=== PATIENT | female | born 1950 | race Caucasian/White ===

== ENCOUNTER 2021-08-04 14:59 | Outpatient (REF) | payer MEDICARE, SELFPAY ==
--- NOTE | ~2021-08-04 | XR_ITS ---
EXAMINATION: XR HAND, LEFT CLINICAL INFORMATION: Pain COMPARISON: None TECHNIQUE: PA, lateral, and oblique views of the left hand. FINDINGS: Bone alignment is normal. No fracture or dislocation is seen. The bones are osteopenic. There may be a small cyst in the third metacarpal head. Joint spaces are normal. Soft tissues are normal. XR/XR hand LT min 3V IMPRESSION: Osteopenia.
== END 2021-08-04 15:00 | disposition home or self-care (01) ==
LOC: HO.XRAY 14:59
PROVIDERS: Absent Provider Internal Medicine; PCP Internal Medicine; Visit Provider Family Medicine
DX: M79.645 Pain in left finger(s) (principal)
CPT/HCPCS: 73130

== ENCOUNTER 2021-08-29 14:00 | Outpatient (REF) | payer MEDICARE, SELFPAY ==
--- NOTE | ~2021-08-29 | MM_ITS ---
EXAMINATION: MM DIAGNOSTIC DIGITAL BREAST TOMOSYNTHESIS, BILATERAL US DIAGNOSTIC ULTRASOUND BREAST, LEFT CLINICAL INFORMATION: Left breast pain for a year. No palpable mass or discharge. The lifetime risk of breast cancer based on the Tyrer-Cuzick Model is 3%. COMPARISON: Mammography: 09/04/2017, 09/18/2016, outside mammography 03/08/2015 and 03/03/2014 ([facility]) TECHNIQUE: Digital breast tomosynthesis is performed in both the craniocaudal and mediolateral oblique views along with computer-aided detection (CAD). Synthesized 2D images are generated from the tomosynthesis. Ultrasound left breast is targeted to the areas of clinical concern for 4:00 through 9:00 position. Grayscale imaging and color Doppler are performed without and with harmonics. FINDINGS: The breasts are almost entirely fatty (ACR BI-RADS breast composition Category a). There is no interval mass or architectural abnormality. There is no coarsening of the Russ's ligaments or skin thickening or retraction. The axilla are unremarkable. Again, there are scattered bilateral vascular calcifications. Numerous fine uniform punctate round calcifications are again seen mid to posterior outer left breast similar to prior exams dating back to outside exam 2013. Ultrasound left breast demonstrates no cystic or solid mass or architectural abnormality. No focal duct ectasia. No skin thickening or edema tracking in soft tissue planes. Results are discussed with the patient at time of visit, using an hourly sign language interpreter. MM/MM tomosynthesis diagnostic BI IMPRESSION: 1. No significant change from prior mammography. No inflammatory changes. 2. Unremarkable left breast ultrasound. ASSESSMENT: BI-RADS 2: Benign RECOMMENDATION: 1. Patient's chronic left breast pain should be managed based on the clinical impression. 2. Otherwise, routine annual screening mammography. This patient's information was entered into a reminder system with a target due date for their next mammogram.
== END 2021-08-29 14:01 | disposition home or self-care (01) ==
LOC: HO.MAMMO 14:00
PROVIDERS: Visit Provider Family Medicine
DX: N64.4 Mastodynia (principal)
CPT/HCPCS: 76642; 77062; 77066

== ENCOUNTER 2022-02-14 12:56 | Outpatient (REF) | payer MEDICARE, SELFPAY ==
--- NOTE | ~2022-02-14 | MM_ITS ---
EXAMINATION: BONE DENSITOMETRY CLINICAL INDICATION: Menopause. COMPARISON: Previous BD dated 03/18/2019 and baseline BD dated 08/30/2016. TECHNIQUE: Using a V[employer] DXA System (software version: 13.1) manufactured by [employer], dual-energy x-ray absorptiometry was performed of the lumbar spine and left hip. The images are of good technical quality. Summary results are attached. FINDINGS: AP SPINE L1-L4: Current: BMD 0.845 g/cm2, Z-score -1.3, T-score -2.8, osteoporosis, 1.4% decrease from previous, 6.1% decrease from baseline (<5% change is not significant). Prior: BMD 0.857 g/cm2. Baseline: BMD 0.900 g/cm2. LEFT FEMUR, NECK: Current: BMD 0.564 g/cm2, Z-score -1.8, T-score -3.4, osteoporosis. Prior: BMD 0.601 g/cm2. Baseline: BMD 0.627 g/cm2. LEFT FEMUR, TOTAL: Current: BMD 0.615 g/cm2, Z-score -1.8, T-score -3.1, osteoporosis, 2.2% decrease from previous, 4.9% decrease from baseline (<5% change is not significant). Prior: BMD 0.629 g/cm2. Baseline: BMD 0.647 g/cm2. IDENTIFIED RISK FACTORS: Menopause, height loss, hysterectomy. HISTORY OF FRACTURE: None listed. MEDICATIONS: Calcium. MM/XR DEXA axial skeleton IMPRESSION: 1. DIAGNOSIS: Osteoporosis based on the lowest T-score value of -3.4 in the femoral neck applying World Health Organization criteria. 2. 10-YEAR FRACTURE RISK PREDICTION, FRAX: According to the guidelines, FRAX calculation should only be performed on patients in the osteopenia bone density category. Therefore, FRAX was not performed on this patient. 3. Treatment Recommendations: NOF guidelines recommend consideration for treatment in postmenopausal women and men age 50 and older presenting with the following: -A hip or vertebral (clinical or morphometric) fracture. -T-score less than or equal to -2.5 at the femoral neck or spine after appropriate evaluation to exclude secondary causes. -Low bone mass at the hip or spine and a 10-year fracture probability by FRAX of greater than or equal to 3% for hip fracture or greater than or equal to 20% for major osteoporotic fracture based on the [place] adapted WHO algorithm. 4. Other Recommendations: All treatment decisions require clinical judgment and consideration of individual patient factors, including patient preferences, comorbidities, previous drug use, risk factors not captured in the FRAX model (e.g. frailty, falls, vitamin D deficiency, increased bone turnover, interval significant decline in bone density) and possible under or overestimation of fracture risk by FRAX. Additional medical evaluation for secondary cause of low bone mineral density may be appropriate. FUTURE SCAN RECOMMENDATION: People with diagnosed cases of osteoporosis or at high risk for fracture should have regular bone mineral density tests. For patients eligible for Medicare, routine testing is allowed once every 2 years. The testing frequency can be increased to one year for patients who have rapidly progressing disease, those who are receiving or discontinuing medical therapy to restore bone mass, or have additional risk factors.
== END 2022-02-14 12:57 | disposition home or self-care (01) ==
LOC: HO.MAMMO 12:56
PROVIDERS: PCP Internal Medicine; Visit Provider Internal Medicine
DX: Z13.820 Encounter for screening for osteoporosis (principal); Z78.0 Asymptomatic menopausal state; M81.0 Age-related osteoporosis without current pathological fracture
CPT/HCPCS: 77080

== ENCOUNTER → 2023-01-11 09:56 | Outpatient (BNVA) | payer MEDICARE, SELFPAY | PROVIDERS: PCP Internal Medicine; Visit Provider Internal Medicine Endocrinology, Diabetes & Metabolism | DX: M81.0 Age-related osteoporosis without current pathological fracture (principal); Z78.0 Asymptomatic menopausal state; Z90.710 Acquired absence of both cervix and uterus; Z79.83 Long term (current) use of bisphosphonates | CPT/HCPCS: 99212 ==

== ENCOUNTER 2023-07-05 11:46 | Outpatient (REF) | payer OTHER, SELFPAY | END 2023-07-05 11:47 | disposition home or self-care (01) | LOC: HO.LAB 11:46 | PROVIDERS: PCP Internal Medicine; Visit Provider Internal Medicine Endocrinology, Diabetes & Metabolism | DX: M81.0 Age-related osteoporosis without current pathological fracture (principal) | CPT/HCPCS: 82523 ==

== ENCOUNTER 2023-07-09 09:47 | Outpatient (AMB) | payer MEDICARE, SELFPAY ==
--- NOTE | 2023-07-09 09:48 | MHC.OFFVIS ---
Intake Vital Signs 07/09/23 09:56 Height 5 ft 1.2 in Weight 162 lb 14.746 oz BMI 30.6 BP 126/64 Blood Pressure Location Lt brachial Position Sitting Pulse 62 Pulse Source Pulse Oximeter Intake Visit Reasons: Osteoporosis, voicemail Intake Note: Patient present for Osteoporosis follow up visit. Field Human Resources Manager Required: Yes Field Human Resources Manager Language: Tamazight Information Interpreted: non-clinical & clinical Accompanied by: Friend Allergies aspirin Allergy (Unknown, Verified 07/09/23 10:03) Unknown Medication List - Last Reconciled 07/09/23 by Wilfrid Solano MD amlodipine 10 mg PO DAILY atorvastatin 40 mg PO DAILY loratadine 10 mg PO DAILY PRN metoprolol tartrate 25 mg PO BID omeprazole 40 mg PO DAILY risedronate (Actonel) 35 mg PO QWEEK HPI HPI Comments History of Present Illness Details This 73-year-old female previously seen by Dr. Darby for osteoporosis. Last seen 05/07/2019. Secondary workup was negative. She is not currently on alendronate 70 mg Q weekly although was prescribed it she took 1 dose of alendronate and describes atypical side effects of sweating and dizziness. DEXA listed below appears to be stable. DXA dated : 02/14/22 EXAMINATION: BONE DENSITOMETRY CLINICAL INDICATION: Menopause. COMPARISON: Previous BD dated 03/18/2019 and baseline BD dated 08/30/2016. TECHNIQUE: Using a [employer] DXA System (software version: 13.1) manufactured by [employer], dual-energy x-ray absorptiometry was performed of the lumbar spine and left hip. The images are of good technical quality. Summary results are attached. FINDINGS: AP SPINE L1-L4: Current: BMD 0.845 g/cm2, Z-score -1.3, T-score -2.8, osteoporosis, 1.4% decrease from previous, 6.1% decrease from baseline (<5% change is not significant). Prior: BMD 0.857 g/cm2. Baseline: BMD 0.900 g/cm2. LEFT FEMUR, NECK: Current: BMD 0.564 g/cm2, Z-score -1.8, T-score -3.4, osteoporosis. Prior: BMD 0.601 g/cm2. Baseline: BMD 0.627 g/cm2. LEFT FEMUR, TOTAL: Current: BMD 0.615 g/cm2, Z-score -1.8, T-score -3.1, osteoporosis, 2.2% decrease from previous, 4.9% decrease from baseline (<5% change is not significant). Prior: BMD 0.629 g/cm2. Baseline: BMD 0.647 g/cm2. IDENTIFIED RISK FACTORS: Menopause, height loss, hysterectomy. HISTORY OF FRACTURE: None listed. MEDICATIONS: Calcium. MM/XR DEXA axial skeleton IMPRESSION: 1. DIAGNOSIS: Osteoporosis based on the lowest T-score value of -3.4 in the femoral neck applying World Health Organization criteria.? Labs: Secondary workup was negative. took risendronate but stopped it couple of mos ago because of abd pain and diarrhea [facility] Medical History (Updated 01/11/23 @ 10:05 by Wilfrid Solano MD) Osteoporosis Social History Alcohol intake: current Alcohol intake frequency: does not drink Patient Tobacco Use Status: Never used Tobacco Second Hand Smoke Exposure: No Physical Exam Vital Signs: Last Vital Signs Pulse 62 07/09/23 09:56 BP 126/64 07/09/23 09:56 BMI result Body Mass Index 30.6 Assessment & Plan Assessment & Plan (1) Osteoporosis: Code(s): M81.0 - Age-related osteoporosis without current pathological fracture Plan: This 73-year-old female with history of osteoporosis with negative secondary workup was on alendronate 70 mg q.week the past 4 years time. Now ever since urinate on risidronate Plan is to talk to the patient and her daughter about alternative treatment for osteoporosis including use of Reclast or Prolia. After careful discussion with use of the de icer finisher, patient is agreed to Reclast infusion. Will try to arrange and also range a basic metabolic panel and calcium level within 2 weeks prior to infusion Medications: Discontinued risedronate (Actonel) administer at least 30 minutes before the first food or drink of the day other than water. Discontinued Reason: Doctor's Order 35 mg PO QWEEK 4 tabs 5RF Coding Level of Care Code Est Pt Level 3 (86027) Diagnoses Osteoporosis M81.0
[2023-07-09 09:56] VITALS: BP 126/64; PULSE 62; BMI 30.6
== END 2023-07-09 10:31 | disposition home or self-care (01) ==
PROVIDERS: PCP Internal Medicine; Visit Provider Internal Medicine Endocrinology, Diabetes & Metabolism
DX: M81.0 Age-related osteoporosis without current pathological fracture (principal)
CPT/HCPCS: 99213

== ENCOUNTER → 2023-07-09 09:47 | Outpatient (BNVA) | payer MEDICARE, SELFPAY | PROVIDERS: Visit Provider Internal Medicine Endocrinology, Diabetes & Metabolism | DX: M81.0 Age-related osteoporosis without current pathological fracture (principal) | CPT/HCPCS: 99212 ==

== ENCOUNTER 2023-08-09 11:08 | Outpatient (REF) | payer OTHER, SELFPAY ==
[2023-08-09 14:19] LABS: MANUAL DIFF FLAG NO
[2023-08-09 14:34] LABS: Basophils Percent Auto 0.4 % (0-2); Eosinophils Absolute Auto 0.1 X10*3/uL (0.0-0.4); Hematocrit 42.8 % (37.0-47.0); Hemoglobin 14.5 g/dl (12.0-16.0); Imm Gran Abs Auto 0.01 X10*3/uL (0.00-0.03); Imm Gran Pct Auto 0.2 % (0.0-0.4); Lymphocytes Absolute Auto 1.6 X10*3/uL (1.2-4.9); Lymphocytes Percent Auto 31.1 % (20-40); Mean Corpuscular HGB Conc 33.9 g/dl (31.0-35.0); Mean Corpuscular Hemoglobin 28.8 pg (27.0-33.0); Mean Corpuscular Volume 84.9 fL (80.0-98.0); Monocytes Absolute Auto 0.3 X10*3/uL (0.1-1.2); Monocytes Percent Auto 6.5 % (2-11); Neutrophils Absolute Auto 3.1 x10*3/uL (2.0-8.3); Neutrophils Percent Auto 60.8 % (45-73); Platelet Count 259 X10*3/uL (160-400); Red Blood Count 5.04 X10*6/uL (4.20-5.50); Red Cell Distribution Width 13.3 % (11.0-16.0); White Blood Count 5.1 X10*3/uL (4.8-10.8)
[2023-08-09 14:48] LABS: Alanine Aminotransferase 15 U/L (0-31); Albumin Level 4.3 g/dL (3.5-5.0); Alkaline Phosphatase 74 U/L (39-117); Anion Gap 11 (12-20); Aspartate Amino Transferase 24 U/L (5-31); Bilirubin Total 0.5 mg/dL (0.0-1.0); Blood Urea Nitrogen 12 mg/dL (9-16); Calcium 9.6 mg/dL (8.4-10.2); Carbon Dioxide 27 mmol/L (22-29); Chloride 107 mmol/L (96-108); Cholesterol 267 mg/dL (<200); Estimated Glomerular Filt Rate > 60; Glucose Random 94 mg/dL (60-115); HDL Cholesterol 70 mg/dL (>40); LDL Cholesterol Calculated 165 mg/dL (<100); Potassium 3.7 mmol/L (3.3-5.1); Sodium 141 mmol/L (135-145); Total Protein 7.9 g/dL (6.5-8.0); Triglycerides 163 mg/dL (<150)
[2023-08-09 15:06] LABS: TSH reflex Free T4 3.93 uIU/mL (0.32-4.0)
[2023-08-09 15:11] LABS: Estimated Average Glucose 103 mg/dL; Hemoglobin A1c % 5.2 % (<6.0)
[2023-08-10 03:47] LABS: ~HepC Num1 0.03 S/CO (0.00-0.79); ~Hepatitis C Antibody Nonreactive (Nonreactive)
== END 2023-08-09 11:09 | disposition home or self-care (01) ==
LOC: HO.CHCLDS 11:08
PROVIDERS: Visit Provider Internal Medicine
DX: I10 Essential (primary) hypertension (principal); Z13.1 Encounter for screening for diabetes mellitus
CPT/HCPCS: 36415; 80053; 80061; 83036; 84443; 85025; 86803

== ENCOUNTER 2024-06-26 12:02 | Outpatient (REF) | payer OTHER, SELFPAY ==
--- NOTE | ~2024-06-26 | MM_ITS ---
EXAMINATION: MM SCREENING DIGITAL BREAST TOMOSYNTHESIS, BILATERAL CLINICAL INFORMATION: Screening. Asymptomatic. COMPARISON: Mammography: Comparison is made with available priors TECHNIQUE: Digital breast mammography with tomosynthesis is performed in both the craniocaudal and mediolateral oblique views along with computer-aided detection (CAD). FINDINGS: There are scattered areas of fibroglandular density (ACR BI-RADS breast composition Category b). There are no significant masses, abnormal calcifications, or other abnormalities. MM/MM tomosynthesis screening BI IMPRESSION: No mammographic evidence of malignancy. ASSESSMENT: BI-RADS BI-RADS 1 - Negative RECOMMENDATION: Routine annual mammography screening. 1 year F/U This examination should not preclude the clinical evaluation of a suspicious palpable abnormality. This patient's information was entered into a reminder system with a target due date for their next mammogram. Electronically signed by: Karina Schneider DO 07/08/2024 03:16 PM EDT
== END 2024-06-26 12:03 | disposition home or self-care (01) ==
LOC: HO.MAMMO 12:02
PROVIDERS: PCP Internal Medicine; Visit Provider Internal Medicine
DX: Z12.31 Encounter for screening mammogram for malignant neoplasm of breast (principal)
CPT/HCPCS: 77063; 77067

== ENCOUNTER → 2024-06-26 12:15 | Outpatient (BNV) | payer OTHER, SELFPAY | PROVIDERS: PCP Internal Medicine; Visit Provider Internal Medicine | DX: Z12.31 Encounter for screening mammogram for malignant neoplasm of breast (principal) | CPT/HCPCS: 77063; 77067 ==

== ENCOUNTER 2025-02-17 11:11 | Outpatient (REF) | payer OTHER, SELFPAY ==
--- OUTSIDE RECORDS SUMMARY | 2025-02-17 12:31 | XMS_ITS | Encounter Summary ---
Author Organization [employer] Address [address] [place] [address] [address] [place] [address] Care Team Providers Care Electric Blanket Packer Name Role Phone Gil Breen MD Primary Care Prov ider Encounter Details Date Type Department Care Team ([facility] st Contact Info) Description 02/17/2025 10:30 AM EDT Office Visit [facility] PEDS [address], [place] [phone] Gil Breen MD [address] [place], [place] [phone] Primary hypertension (Primary Dx); Mixed hyperlipidemia; Screening for colon cancer; Left flank pain Social History Tobacco Use Types Packs/Day Years Used Date Smoking Tobacco: Never Smokeless Tobacco: Never Alcohol Use Standard Drinks/Week Comments Never 0 (1 standard drink = 0.6 oz pur e alcohol) Depression Answer Date Recorded Patient Health Questionnaire-9 Score 3 02/17/2025 Patient Health Questionnaire-9 Score 3 02/17/2025 Last PHQ-9: Questionnaire Data Not on file 0 02/17/2025 Housing Stability Answer Date Recorded What is your housing situation today? I have amber rodriguez 02/17/[address] you li ve. Do you have problems with any of the following? None of the above 02/17/2025 Food Insecurity Answer Date Recorded Within the past 12 months, y ou worried that your food would run out before you got money to buy more: Never True 02/17/2025 Within the past 12 months,th e food you bought just didn't last and you didn't have enough money to get more: Never True Transportation Answer Date Recorded In the past 12 months, has l ack of transportation kept you from medical appts, meetings, work or from getting things needed for daily living? No 02/17/2025 Utilities Answer Date Recorded In the past 12 months, has t he electric, gas, oil or water company threatened to shut off services in your home? No 02/17/2025 Depression Answer Date Recorded Patient Health Questionnaire-2 Score 2 02/17/2025 Internet Access Answer Date Recorded Internet Access Q1 Yes 02/17/2025 Internet Access Q2 Not on file 02/17/2025 Comments Unknown Sex and Gender Information Value Date Recorded Sex Assigned at Female 07/30/2022 10:30 AM EDT Legal Sex Female 10:30 AM EDT Gender Identity Female 07/30/2022 10:30 AM EDT Sexual Orientation Choose not to disclose 2021 10:30 AM EDT documented as of this encounter Last Filed Vital Signs Vital Sign Reading Time Taken Comments Blood Pressure 120/72 02/17/2025 10:30 AM EDT Pulse 80 02/17/2025 10:30 AM EDT Temperature 36.3 ??C (97.4 ??F) 02/17/2025 10:30 AM E DT Respiratory Rate 20 02/17/2025 10:30 AM EDT Oxygen Saturation 98% 02/17/2025 10:30 AM EDT Inhaled Oxygen Concentration - - Weight 70.8 kg (156 lb) 02/17/2025 10:30 AM EDT Height 154.9 cm (5' 1 ) 02/17/2025 10:30 AM EDT Body Mass Index 29.48 02/17/2025 10:30 AM EDT documented in this encounter Functional Status * Over the past 2 weeks, how often have you been bothered by any of the following problems? Question Answer Date of Assessment Author Patient Health Questionnaire -2 Score 2 02/17/2025 10:31 AM EDT Dipesh Shah MA * Little interest or pleasure in doing things Answer Date of Assessment Author Several days 02/17/2025 10:31 AM EDT Dipesh Shah MA * Feeling down, depressed, or hopeless Answer Date of Assessment Author Several days 02/17/2025 10:31 AM EDT Dipesh Shah MA * Trouble falling or staying asleep, or sleeping too much Answer Date of Assessment Author Several days 02/17/2025 10:31 AM EDT Dipesh Shah MA * Feeling tired or having little energy Answer Date of Assessment Author Not at all 02/17/2025 10:31 AM EDT Dipesh Shah MA * Poor appetite or overeating Answer Date of Assessment Author Not at all 02/17/2025 10:31 AM EDT Dipesh Shah MA * Feeling bad about yourself - or that you are a failure or have let yourself or your family down Answer Date of Assessment Author Not at all 02/17/2025 10:31 AM EDT Dipesh Shah MA * Trouble concentrating on things, such as reading the newspaper or watching television Answer Date of Assessment Author Not at all 02/17/2025 10:31 AM EDT Dipesh Shah MA * Moving or speaking so slowly that other people could have noticed? Or the opposite - being so fidgety or restless that you have been moving around a lot more than usual. Answer Date of Assessment Author Not at all 02/17/2025 10:31 AM EDDipesh March MA * Thoughts that you would be better off or hurting yourself in some way Answer Date of Assessment Author Not at all 02/17/2025 10:31 AM Dipesh Santillan MA * Patient Health Questionnaire-9 Score Answer Date of Assessment Author 3 02/17/2025 10:31 AM EDT Dipesh Shah MA * How difficult have these problems made it for you to do your work, take care of things at home, or get along with other people? Answer Date of Assessment Author Not difficult at all 02/17/2025 10:31 AM EDT Dipesh Soriano MA documented as of this encounter Progress Notes * Gil Menendez MD - 02/17/2025 10:30 AM EDT Subjective Patient ID: Radha Marina is a 74 y.o. female who presents for No chief complaint on file.. Hypertension This is a chronic problem. Pertinent negatives include no chest pain, headaches, palpitations or shortness of breath. There is no history of chronic renal disease. Hyperlipidemia This is a chronic problem. Exacerbating diseases include obesity. She has no history of chronic renal disease, diabetes, hypothyroidism, liver disease or nephrotic syndrome. Pertinent negatives include no chest pain, focal weakness, leg pain, myalgias or shortness of breath. Review of Systems Respiratory: Negative for shortness of breath. Cardiovascular: Negative for chest pain and palpitations. Musculoskeletal: Negative for myalgias. Neurological: Negative for focal weakness and headaches. Objective Physical Exam Constitutional: Appearance: Normal appearance. Cardiovascular: Rate and Rhythm: Normal rate. Heart sounds: No murmur heard. Pulmonary: Effort: Pulmonary effort is normal. No respiratory distress. Breath sounds: No stridor. No wheezing or rhonchi. Abdominal: General: Abdomen is flat. There is no distension. Palpations: Abdomen is soft. There is no mass. Hernia: No hernia is present. Neurological: General: No focal deficit present. Mental Status: She is alert and oriented to person, place, and time. Psychiatric: Mood and Affect: Mood normal. Behavior: Behavior normal. Assessment/Plan Problem List Items Addressed This Visit Primary hypertension - Primary Controlled, keep current medical therapy, encourage low sodium diet and exercise as tolerated, keepbp log, target <140/90 Relevant Orders CBC auto differential Comprehensive Metabolic Panel Lipid Panel, Standard TSH W/Reflex to FT4 Hemoglobin A1c Mixed hyperlipidemia On atorvastatin, will order new labs for guidance of therapy Screening for colon cancer Will send cologuard, patient refused colonoscopy risk vs benefits discussed Relevant Orders Cologuard?? colon cancer screening Left flank pain Patient fell over a month ago, no bruises on examination, will prescribe naproxen and cyclobenzaprine, call back if not improving in 2 weeks documented in this encounter Miscellaneous Notes * Assessment & Plan Note - Gil Menendez MD - 02/17/2025 11:20 AM EDTAssociated Problem(s): Left flank pain Patient fell over a month ago, no bruises on examination, will prescribe naproxen and cyclobenzaprine, call back if not improving in 2 weeks * Assessment & Plan Note - Gil Menendez MD - 02/17/2025 11:17 AM EDTAssociated Problem(s): Screening for colon cancer Will send cologuard, patient refused colonoscopy risk vs benefits discussed * Assessment & Plan Note - Gil Menendez MD - 02/17/2025 11:16 AM EDTAssociated Problem(s): Primary hypertension Controlled, keep current medical therapy, encourage low sodium diet and exercise as tolerated, keepbp log, target <140/90 * Assessment & Plan Note - Gil Menendez MD - 02/17/2025 11:16 AM EDTAssociated Problem(s): Mixed hyperlipidemia On atorvastatin, will order new labs for guidance of therapy documented in this encounter Plan of Treatment Scheduled Orders Name Type Priority Associated Diagnoses Orde r Schedule CBC auto differential Lab Routine Primary hypertension Expected: 02/17/2025 (Approximate), Expires: 02/17/2026 Comprehensive Metabolic Panel Lab Routine Primary hypertension Expected: 02/17/2025 (Approximate), Expires: 02/17/2026 Lipid Panel, Standard Lab Routine Primary hypertension Expected: 02/17/2025 (Approximate), Expires: 02/17/2026 TSH W/Reflex to FT4 Lab Routine Primary hypertension Expected: 02/17/2025 (Approximate), Expires: 02/17/2026 Hemoglobin A1c Lab Routine Primary hypertension Expected: 02/17/2025 (Approximate), Expires: 02/17/2026 Cologuard?? colon cancer screening Lab Routine Screening for colon cancer Ordered: 02/17/2025 documented as of this encounter Visit Diagnoses Diagnosis Primary hypertension- Primary Unspecified essential hypertension Mixed hyperlipidemia Screening for colon cancer Special screening for malignant neoplasms, colon Left flank pain Abdominal pain, unspecified site documented in this encounter Additional Health Concerns Assessment Noted Time PHQ-9 Depression Total Score: 3 02/18/20 25 10:31 AM EDT documented as of this encounter Care Teams Electric Blanket Packer Relationship Specialty Start Date End Date Gil Breen MD [address] [place] [id number] PCP - General Internal Medicine 02/28/20 documented as of this encounter
--- OUTSIDE RECORDS SUMMARY | 2025-02-17 12:31 | XMS_ITS | Encounter Summary ---
Author Organization [employer] Address [address] [place] [address] Care Team Providers Care Monogram Machine Operator Name Role Phone Gil Breen MD Primary Care Prov ider Encounter Details Date Type Department Care Team (Latest Contact Info) Description 02/17/2025 Travel Social History Tobacco Use Types Packs/Day Years [...] AM EDT documented as of this encounter Functional Status * Over the [...] Author Not at all 02/17/2025 10:31 AM TOÑITOT Dipesh Shah MA * Moving or speaking so slowly that other people could have noticed? Or the opposite - being so fidgety or restless that you have been moving around a lot more than usual. Answer Date of Assessment Author Not at all 02/17/2025 10:31 AM Dipesh Santillan MA * Thoughts that you would be better off or hurting yourself in some way Answer Date of Assessment Author Not at all 02/17/2025 10:31 AM EDT Dipesh Shah MA * Patient Health Questionnaire-9 Score Answer [...] Soriano MA documented as of this encounter Plan of Treatment Not on file documented as of this encounter Visit Diagnoses Not on filedocumented in this encounter Additional Health Concerns Assessment Noted Time PHQ-9 Depression Total Score: 3 02/18/20 25 10:31 AM EDT documented as of this encounter Care Teams Monogram Machine Operator Relationship Specialty Start Date End Date Gil Breen MD [address] [place] [id number] PCP - General Internal Medicine 02/28/20 documented as of this encounter
--- OUTSIDE RECORDS SUMMARY | 2025-02-17 12:31 | XMS_ITS | Encounter Summary ---
Author Organization [employer] Address [address] [place] [address] [address] [place] [address] Care Team Providers Care Assembler Arranger Name Role Phone Gil Breen MD Primary Care Prov ider Reason for Visit * Reason Comments Med Refill Encounter Details Date Type Department Care Team ([facility] st Contact Info) Description 07/17/2023 Refill [facility] [address] [facility] [place] [address] Gil Breen MD [address] [facility] [place] [address] Social History Tobacco Use Types Packs/Day Years Used Date Smoking Tobacco: Never Assessed Comments Unknown Sex and Gender Information Value Date Recorded Sex Assigned at Female 07/30/2022 10:30 AM EDT Legal Sex Female 10:30 AM EDT Gender Identity Female 07/30/2022 10:30 AM EDT Sexual Orientation Choose not to disclose 2021 10:30 AM EDT documented as of this encounter Plan of Treatment Not on file documented as of this encounter Visit Diagnoses Not on filedocumented in this encounter Care Teams Assembler Arranger Relationship Specialty Start Date End Date Gil Breen MD [address] [place], [place] [phone] PCP - General Internal Medicine 02/28/20 documented as of this encounter
--- OUTSIDE RECORDS SUMMARY | 2025-02-17 12:31 | XMS_ITS | Clinical Summary ---
Author Organization [employer] Address [address] [facility] [address] [place] [address] Care Team Providers Care Floriculturist Name Role Phone Gil Breen MD Primary Care Prov ider Allergies No known active allergies Medications risedronate (Actonel) 35 MG tablet Take 35 mg by mouth 1 (one) time per week. 3 Active carboxymethylce llulose (Artificial Tears) 1 % ophthalmic solution Administer 1 drop into both eyes 3 times daily. 15 mL 1 4 05/18/20 25 Active atorvastatin (Lipitor) 40 MG tablet TAKE 1 TABLET(40 MG) BY MOUTH IN THE MORNING 90 tablet 5 Active amLODIPine (Norvasc) 10 MG tablet TAKE 1 TABLET(10 MG) BY MOUTH IN THE MORNING 90 tablet 5 Active metoprolol tartrate (Lopressor) 25 MG tablet TAKE 1 TABLET(25 MG) BY MOUTH EVERY 12 HOURS 180 tablet 5 Active omeprazole (PriLOSEC) [address] capsule TAKE 1 CAPSULE BY MOUTH EVERY DAY 30 MINUTES TO 1 HOUR BEFORE A MEAL 90 capsule 5 Active naproxen (Naprosyn) 500 MG tablet Take 1 tablet (500 mg) by mouth 2 times daily. 60 tablet 5 03/19/20 25 Active cyclobenzaprine (Flexeril) 10 MG tablet Take 1 tablet (10 mg) by mouth 3 times daily for 10 days. 30 tablet 5 02/28/20 25 Active Active Problems Problem Noted Date Diagnosed Date Left flank pain 02/17/2025 Assessment & Plan (02/17/2025 11:20 AM EDT): Patient fell over a month ago, no bruises on examination, will prescribe naproxen and cyclobenzaprine, call back if not improving in 2 weeks Encounter for screening mamm ogram for malignant neoplasm of breast 06/10/2024 Alzheimer disease 05/18/2024 Assessment & Plan (05/18/2024 9:57 AM EDT): Saw neurology, was diagnosed with alzheimer dementia, missed follow up appointment, told landscape manager to call her insurance, patient needs a [employer]PER[employer]OR for daily activities such as taking her medications, preparing food. Memory loss 01/09/2024 Assessment & Plan (01/09/2024 11:25 PM EDT): Will refer to neurology for memory loss evaluation Primary insomnia 01/09/2024 Assessment & Plan (06/10/2024 8:03 PM EDT): Controlled, with melatonin, no changes will be amde Assessment & Plan (01/09/2024 11:25 PM EDT): Discussed lifestyle modification, will start on melatonin Primary hypertension 10/13/2023 Assessment & Plan (02/17/2025 11:16 AM EDT): Controlled, keep current medical therapy, encourage low sodium diet and exercise as tolerated, keep bp log, target <140/90 Assessment & Plan (06/10/2024 8:03 PM EDT): Controlled on amlodipine and metoprolol, no changes will be made Assessment & Plan (05/18/2024 9:56 AM EDT): Controlled, continue current therapy, keep bp log, continue low sodium diet, follow up in 4 months Assessment & Plan (02/07/2024 1:19 PM EDT): Controlled but patient refers having episode of diziness, told her to keep a bp log, bp target <140/90 and HR <60. Assessment & Plan (01/09/2024 11:23 PM EDT): Patient did not took her medications, she is forgetting to take them, she has a pocket pill, provided with a list for [employer] services, follow up in 1 month Assessment & Plan (10/13/2023 1:58 PM EST): Controlled on amlodipine and metoprolol, reinforced low sodium diet and exercise as tolerated Mixed hyperlipidemia 10/13/2023 Assessment & Plan (02/17/2025 11:16 AM EDT): On atorvastatin, will order new labs for guidance of therapy Assessment & Plan (06/10/2024 8:04 PM EDT): Order sent not done will follow up results for guidance of therapy Assessment & Plan (01/09/2024 11:23 PM EDT): Will send new labs for guidance of therapy Assessment & Plan (10/13/2023 1:57 PM EST): On atorvastatin, will order new labs for guidance of therapy Screening for colon cancer 10/13/2023 Assessment & Plan (02/17/2025 11:17 AM EDT): Will send cologuard, patient refused colonoscopy risk vs benefits discussed Assessment & Plan (10/13/2023 1:59 PM EST): Will refer for screening colon cancer Encounters Date Type Department Care Team Description 02/17/2025 10:30 AM EDT Office Visit [facility] [address] [place] [address] Gil Breen MD Primary hypertension (Primary Dx); Mixed hyperlipidemia; Screening for colon cancer; Left flank pain 02/17/2025 Travel 02/09/2025 Patient Outreach [facility] [address] [place] [address] Gil Breen MD Pre-visit Planning (Pre visit planning LVM ) 12/04/2024 Refill [facility] [address] [place] [address] Gil Breen MD 11/30/2024 Telephone [facility] [address] [place] [address] Gil Breen MD Nurse Triage 11/27/[address] [address] Gil Breen MD Nurse Triage 11/23/2024 Telephone [facility] [address] [place] [address] Gil Breen MD 11/23/2024 Travel from Last 3 Months Immunizations Immunization Administration Dates Next Due Influenza High-dose Quadriva lent Preservative Free 08/09/2023,06/12/2022,07/18/2021 Influenza injectable quadriv alent IIV4 with preservative 07/01/2018 Influenza injectable quadriv alent preservative free 06/25/2016 Influenza, High Dose Seasona l, Preservative Free 06/10/2024 Influenza, IIV3, injectable 05/27/2015 Influenza, Injectable, MDCK, preservative free 05/27/2015 Influenza, trivalent, adjuvanted 08/08/2017 Pneumococcal Conjugate PCV 13 08/08/2017 Pneumococcal Polysaccharide PPSV23 07/01/2018 Tdap 07/01/2018,11/28/2012 Social History Tobacco Use Types Packs/Day Years Used Date Smoking Tobacco: Never Smokeless Tobacco: Never Tobacco Cessation:Counseling Given: Not Answered Alcohol Use Standard Drinks/Week Comments Never 0 [...] not to disclose 2021 10:30 AM EDT Last Filed Vital Signs Vital Sign Reading [...] Mass Index 29.48 02/17/2025 10:30 AM EDT Plan of Treatment Health Maintenance Due Date Last Done Comments CT Colonography 1952 FIT DNA/Cologuard 1952 FIT 1950 FOBT 1950 Sigmoidoscopy 1952 Zoster Vaccines (1 of 2) 2002 Colonoscopy 09/15/2020 09/15/2017 Colorectal Cancer Screening 09/15/2020 COVID-19 Vaccine ( season) 2024 10/20/2022, 08/10/2021, 01/11/2021, Additional history exists Tobacco Screening 06/10/2025 06/10/2024 Alcohol/Substance Use Screening 02/17/2026 02/17/2025 Depression Screening 02/17/2026 02/17/2025, 02/18/20 SDOH Screening 02/17/2026 02/17/2025 Mammogram 06/26/2026 06/26/2024, 01/28, 08/29/2021, Additional history exists RSV Patients and Patients Aged 60 years or older (1 - 1-dose 75+ series) 2027 DTaP/Tdap/Td Vaccines (3 - Td or Tdap) 07/01/2028 07/01/2018, 11/28/2012 Lipid Panel 08/09/2028 08/09/2023, 05/31, 08/07/2021, Additional history exists Pneumococcal Vaccine: 50+ Years Completed 07/01/2018, 08/08/2017 Hepatitis C Screening Completed 08/09/2023 Influenza Vaccine Completed 06/10/2024, , 06/12/2022, Additional history exists HIB Vaccines Aged Out No longer eligi ble based on patient's age to complete this topic HPV Vaccines Aged Out No longer eligi ble based on patient's age to complete this topic Hepatitis A Vaccines Aged Out No long er eligible based on patient's age to complete this topic Hepatitis B Vaccines Aged Out No long er eligible based on patient's age to complete this topic IPV Vaccines Aged Out No longer eligi ble based on patient's age to complete this topic Meningococcal B Vaccine Aged Out No l onger eligible based on patient's age to complete this topic Meningococcal Vaccine Aged Out No praveen juan manuel eligible based on patient's age to complete this topic RSV under 20 months Aged Out No longe r eligible based on patient's age to complete this topic Rotavirus Vaccines Aged Out No longer eligible based on patient's age to complete this topic Procedures Procedure Name Priority Date/Time Associated Diagnosis Comments BI MAMMOGRAM SCREENING TOMOSYNTHESIS BILATERAL Routine 06/26/2024 12:07 PM EDT Encounter for screening mammogram for malignant neoplasm of breast HEPATITIS C AB W/REFL TO HCV RNA, QN, PCR Routine 08/09/2023 11:10 AM EST Primary hypertension LIPID PANEL, STANDARD Routine 08/09/2023 11:10 AM EST Primary hypertension HM COLONOSCOPY Routine 09/15/2017 2:17 PM EST from Last 3 Months or Most Recently Relevant to Health Maintenance Results * BI Mammogram Screening Tomosynthesis Bilateral (06/26/2024 12:07 PM EDT) Anatomical Region Laterality Modality Breast Bilateral Mammography 06/26/2024 12:0 7 PM EDT Narrative 07/08/2024 3:20 PM EDT ? [facility] [place] ? [address] ?[place] [address] ? Mammography Report ? Signed ? Patient: Radha Marina ?MR#: [id number] ?? [id number] ? : 1950 ?Acct:[id number] ? Age/Sex: 74 / F ?ADM Date: 06/26/24 ? Loc: HO.MAMMO ? Attending Dr: Gil Zapatajordin Menendez MD ? Ordering Physician: ZapataGil Negrete MD ?Res ?? ults: 1Negative ? Date of Service: 06/26/ ?Follow Up: 1 Year From Orig ?? inal Mammogram ? Procedure(s): MM tomosynthesis screening BI ?? Accession Number(s): [id number] ? cc: Gil Breen MD ? EXAMINATION: ?? MM SCREENING DIGITAL BREAST TOMOSYNTHESIS, BILATERAL ? CLINICAL INFORMATION: ? Screening. Asymptomatic. ? COMPARISON: ?? Mammography: Comparison is made with available priors ? TECHNIQUE: ?? Digital breast mammography with tomosynthesis is performed in both the ?? craniocaudal and mediolateral oblique views along with computer-aided ?? detection (CAD). ? FINDINGS: ?? There are scattered areas of fibroglandular density (ACR BI-RADS breast ?? composition Category b). ? There are no significant masses, abnormal calcifications, or other ?? abnormalities. ? MM/MM tomosynthesis screening BI ?? IMPRESSION: ?? No mammographic evidence of malignancy. ? ASSESSMENT: ? BI-RADS BI-RADS 1 - Negative ? RECOMMENDATION: ?? Routine annual mammography screening. ? 1 year F/U ? This examination should not preclude the clinical evaluation of a ?? suspicious palpable abnormality. ? This patient's information was entered into a reminder system with a ?? target due date for their next mammogram. ? Electronically signed by: ??Karina Schneider DO ??07/08/2024 03:16 PM EDT ? Dictated By: ?Karina Schneider DO ? Signed By: ?<Electronically signed by Karina Schneider, DO in OV> ? 07/08/24 1516 ? DD/ 1207 ? TD/TT: 06/26/24 1231 ? Drafter Commercial: ? Procedure Note Sarita Galan - 07/08/2024 [facility] [address] [place] [address] Dr. [place]nier, [place] [address] Mammography Report Signed Patient: Radha Marina#: [id number] : 2Acct:[id number] Age/Sex: 74 / FADM Date: 09/27/24 Loc: HO.MAMMO Attending Dr: Gil Mennedez MD Ordering Physician: Gil Breen ults: 1Negative Date of Service: 06/26/24Follow Up: 1 Year From Orig inal Mammogram Procedure(s): MM tomosynthesis screening BI Accession Number(s): [id number] cc: Gil Breen MD EXAMINATION: MM SCREENING DIGITAL BREAST TOMOSYNTHESIS, BILATERAL CLINICAL INFORMATION: Screening. Asymptomatic. COMPARISON: Mammography: Comparison is made with available priors TECHNIQUE: Digital breast mammography with tomosynthesis is performed in both the craniocaudal and mediolateral oblique views along with computer-aided detection (CAD). FINDINGS: There are scattered areas of fibroglandular density (ACR BI-RADS breast composition Category b). There are no significant masses, abnormal calcifications, or other abnormalities. MM/MM tomosynthesis screening BI IMPRESSION: No mammographic evidence of malignancy. ASSESSMENT: BI-RADS BI-RADS 1 - Negative RECOMMENDATION: Routine annual mammography screening. 1 year F/U This examination should not preclude the clinical evaluation of a suspicious palpable abnormality. This patient's information was entered into a reminder system with a target due date for their next mammogram. Electronically signed by: Karina Schneider DO 07/08/2024 03:16 PM EDT Dictated By: Karina Schneider DO Signed By: <Electronically signed by Karina Schneider DO in OV> 07/08/24 1516 DD/ 1207 TD/TT: 06/26/24 1231 Drafter Commercial: us Gil Menendez MD IM BI PROCEDURES Final Result * Hepatitis C Antibody with Reflex to HCV, RNA, Quantitative, Real-Time PCR (08/09/2023 11:10 AM EST) Hepatitis C Antibody Nonreactive Nonreactive [facility] Comment:Antibodies to HCV no t detected; does not exclude early acuteHCV infection. Blood Venous blood specimen / Unknown 08/09/2023 11:10 AM EST 08/09/2023 2:13 PM EST Gil Menendez MD LAB BLOOD ORDERABL ES Final Result [facility] [address] [place] [address] [phone] * (ABNORMAL) Lipid Panel, Standard (08/09/2023 11:10 AM EST) Triglycerides 163(H) <150 mg/dL [facility] Comment:Desirable Triglyceri de: less than 150 mg/dLBorderline High Triglyceride 150-199 mg/dLHigh Triglyceride: 200-499 mg/dLVery High Triglyceride: greater than or equal to 5OO mg/dL Cholesterol 267(H) <200 mg/dL [facility] Comment:Desirable Cholestero l: less than 200 mg/dLBorderline High Cholesterol: 200-239 mg/dLHigh Cholesterol: greater than 239 mg/dL LDL Cholesterol Calculated 165(H) <100 mg/dL [facility] Comment:Desirable LDL: less than 100 mg/dLNear Optimal/Above Optimal LDL: 110- 129 mg/dLBorderline High LDL: 130-159 mg/dLHigh LDL: 160-189 mg/dLVery High LDL: greater than or equal to 190 mg/dL HDL Cholesterol 70 >40 mg/dL [facility] Comment:Desirable HDL: great er than 40 mg/dL Note: This HDL assay may give artificially low results in patients with liver disease. Blood Venous blood specimen / Unknown 08/09/2023 11:10 AM EST 08/09/2023 2:13 PM EST Gil Menendez MD LAB BLOOD ORDERABL ES Final Result [facility] [address] [place] [address] [phone] * Hm Colonoscopy (09/15/2017 2:17 PM EST) Colonoscopy Normal Normal Historical Provider HEALTH MAINTENANCE Edited Result - Final from Last 3 Months or Most Recently Relevant to Health Maintenance Insurance Care Teams Floriculturist Relationship Specialty Start Date End Date Gil Breen MD [address] [place] [address] [place] Akins PCP - General Internal Medicine 02/28/20
--- OUTSIDE RECORDS SUMMARY | 2025-02-17 12:31 | XMS_ITS | Encounter Summary ---
Author Organization [employer] Address [address] [place] [address] Care Team Providers Care Folder Tier Name Role Phone Gil Breen MD Primary Care Prov ider Encounter Details Date Type Department Care Team (Late st Contact Info) Description 01/10/2024 Orders Only [facility] [address] [place] [address] ProviderLuz Marina MD Social History Tobacco Use Types Packs/Day Years Used Date Smoking Tobacco: Never Smokeless Tobacco: Never Alcohol Use Standard Drinks/Week Comments Never 0 (1 standard drink = 0.6 oz pur e alcohol) Depression Answer Date Recorded Patient Health Questionnaire-9 Score 8 08/09/2023 Patient Health Questionnaire-9 Score 8 08/09/2023 Last PHQ-9: Questionnaire Data Not on file 1 10/09/2022 Housing Stability Answer Date Recorded What is your housing situation today? I have amberronen rodriguez 08/01/[address] you li ve. Do you have problems with any of the following? None of the above 08/01/2023 Food Insecurity Answer Date Recorded Within the past 12 months, y ou worried that your food would run out before you got money to buy more: Never True 08/01/2023 Within the past 12 months,th e food you bought just didn't last and you didn't have enough money to get more: Never True 10/2022 Transportation Answer Date Recorded In the past 12 months, has l ack of transportation kept you from medical appts, meetings, work or from getting things needed for daily living? Yes, it has kept me from medical appointments or getting medications. 08/01/2023 Utilities Answer Date Recorded In the past 12 months, has t he electric, gas, oil or water company threatened to shut off services in your home? No 08/01/2023 Depression Answer Date Recorded Patient Health Questionnaire-2 Score 2 08/09/2023 Comments Unknown Sex and Gender Information Value Date Recorded Sex Assigned at Female 07/30/2022 10:30 AM EDT Legal Sex Female 10:30 AM EDT Gender Identity Female 07/30/2022 10:30 AM EDT Sexual Orientation Choose not to disclose 2021 10:30 AM EDT documented as of this encounter Plan of Treatment Not on file documented as of this encounter Procedures Procedure Name Priority Date/Time Associated Diagnosis Comments COLONOSCOPY Routine 09/15/2017 2:17 PM EST documented in this encounter Results * Colonoscopy (09/15/2017 2:17 PM EST) Colonoscopy Normal Normal us Historical Provider [facility] Edited Result - Final documented in this encounter Visit Diagnoses Not on filedocumented in this encounter Additional Health Concerns Assessment Noted Time PHQ-9 Depression Total Score: 8 08/09/20 23 9:53 AM EST documented as of this encounter Care Teams Folder Tier Relationship Specialty Start Date End Date Gil Breen MD [address] [place] [id number] PCP - General Internal Medicine 02/28/20 documented as of this encounter
--- OUTSIDE RECORDS SUMMARY | 2025-02-17 12:31 | XMS_ITS | Clinical Summary ---
Author Organization [facility] Address [address] [place] [address] Care Team Providers Care Counter Waiter Name Role Phone Unavailable Primary Care Provider Unavailabl e Source Comments PLEASE NOTE, if this patient is a minor, it may be UNLAWFUL to discuss sensitive information that is contained in these records (such as FAMILY PLANNING, MENTAL HEALTH or SUBSTANCE ABUSE) with the minor patient's parent or other person without the patient's specific authorization.[facility] Immunizations Immunization Administration Dates Next Due Moderna COVID-19 Vaccine, re d cap blue label, 12+ Primary Series 01/11/2021,12/14/2020 Social History Tobacco Use Types Packs/Day Years Used Date Smoking Tobacco: Never Assessed Social Connections Answer Date Recorded Social Connections and Isolation 0 12/14/2020 Financial Resource Strain Answer Date R ecorded Financial Resource Strain 0 2020 Stress Answer Date Recorded Stress 0 12/14/2020 Physical Activity Answer Date Recorded Physical Activity 0 12/14/2020 Food Insecurity Answer Date Recorded Food 0 12/14/2020 Transportation Needs Answer Date Record ed Transportation 0 12/14/2020 Housing Stability Answer Date Recorded Housing 0 12/14/2020 Safety and Environment Answer Date Will rded Safety 0 12/14/2020 Utilities Answer Date Recorded Utilities 0 12/14/2020 Employment Answer Date Recorded Employment 0 12/14/2020 Comments Unknown Sex and Gender Information Value Date Recorded Sex Assigned at Not on file Legal Sex Female 10:21 AM PDT Gender Identity Not on file Sexual Orientation Not on file Plan of Treatment Health Maintenance Due Date Last Done Comments Hepatitis C Screening 1950 Lipid Screening 1950 Tobacco Screening 1950 Hypertension Screening (#1) 1970 Medicare Annual Wellness Visit 1970 Breast Cancer Screening (Mammogram) 1992 CT Colonography 1997 Colonoscopy 1997 Colorectal Cancer Screening 1997 FIT/gFOBT 1997 Fecal DNA 1997 Flexible Sigmoidoscopy 1997 Imm-Zoster, Recombinant (1 of 2) 2002 Bone Density Screening 2017 [place] Prevention 2017 Saw-BAIVN-36 ( season) 05/31/202401/11/2 021, 12/14/2020 Imm-Influenza (#1) 2024 07/01/2018, 1 10/08/2016, 06/25/2016, Additional history exists Alcohol and Drug Screen 09/30/2024 Depression Annual Screen 09/30/2024 Imm-DTaP/Tdap/Td (2 - Td or Tdap) 07/01/2028 018 Imm-Pneumococcal 65+ Completed 07/01/2018, 08/08/20 17 Insurance [employer] MEDICARE COMPLETE CHO
[2025-02-17 14:13] LABS: MANUAL DIFF FLAG NO
[2025-02-17 14:15] LABS: Basophils Absolute Auto 0.1 X10*3/uL (0.0-0.2); Basophils Percent Auto 0.8 % (0-2); Eosinophils Absolute Auto 0.2 X10*3/uL (0.0-0.4); Eosinophils Percent Auto 2.8 % (0-4); Hematocrit 42.3 % (37.0-47.0); Imm Gran Abs Auto 0.02 X10*3/uL (0.00-0.03); Imm Gran Pct Auto 0.3 % (0.0-0.4); Lymphocytes Absolute Auto 1.8 X10*3/uL (1.2-4.9); Lymphocytes Percent Auto 28.8 % (20-40); Mean Corpuscular HGB Conc 33.1 g/dl (31.0-35.0); Mean Corpuscular Hemoglobin 27.7 pg (27.0-33.0); Mean Corpuscular Volume 83.8 fL (80.0-98.0); Mean Platelet Volume 10.4 fL (9.4-12.3); Monocytes Absolute Auto 0.4 X10*3/uL (0.1-1.2); Monocytes Percent Auto 6.4 % (2-11); Neutrophils Absolute Auto 3.9 x10*3/uL (2.0-8.3); Neutrophils Percent Auto 60.9 % (45-73); Platelet Count 301 X10*3/uL (160-400); Red Blood Count 5.05 X10*6/uL (4.20-5.50); Red Cell Distribution Width 13.3 % (11.0-16.0); White Blood Count 6.4 X10*3/uL (4.8-10.8)
[2025-02-17 14:35] LABS: Estimated Average Glucose 105 mg/dL; Hemoglobin A1C 123.9667 umol/L; Hemoglobin A1c % 5.3 % (<6.0); Total Hemoglobin (HGBA1C) 3605.8607 umol/L
[2025-02-17 15:39] LABS: Alanine Aminotransferase 27 U/L (0-31); Albumin Level 4.2 g/dL (3.5-5.0); Alkaline Phosphatase 122 U/L (39-117); Anion Gap 13 (12-20); Aspartate Amino Transferase 41 U/L (5-31); Bilirubin Total 0.4 mg/dL (0.0-1.0); Blood Urea Nitrogen 11 mg/dL (9-16); Calcium 9.8 mg/dL (8.4-10.2); Carbon Dioxide 26 mmol/L (22-29); Chloride 106 mmol/L (96-108); Cholesterol 217 mg/dL (<200); Estimated Glomerular Filt Rate 59; Glucose Random 83 mg/dL (60-115); HDL Cholesterol 62 mg/dL (>40); LDL Cholesterol Calculated 117 mg/dL (<100); Sodium 140 mmol/L (135-145); TSH reflex Free T4 5.61 uIU/mL (0.32-4.0); Total Protein 7.6 g/dL (6.5-8.0); Triglycerides 194 mg/dL (<150)
[2025-02-17 17:49] LABS: Free T4 (Free Thyroxine) 1.05 ng/dL (0.71-1.85)
== END 2025-02-17 11:12 | disposition home or self-care (01) ==
LOC: HO.CHCLDS 11:11
PROVIDERS: Visit Provider Internal Medicine
DX: I10 Essential (primary) hypertension (principal); Z13.1 Encounter for screening for diabetes mellitus
CPT/HCPCS: 36415; 80053; 80061; 83036; 84439; 84443; 85025

== ENCOUNTER 2025-08-20 11:17 | Outpatient (REF) | payer OTHER, SELFPAY ==
--- NOTE | ~2025-08-20 | XR_ITS ---
EXAMINATION: XR HIP, LEFT CLINICAL INFORMATION: left hip pain COMPARISON: None available. TECHNIQUE: Two views of the left hip. FINDINGS: No acute displaced fracture. Left femoral head is well seated within the acetabulum. Overlying soft tissues are unremarkable. XR/XR hip LT min 2V IMPRESSION: No acute displaced fracture or dislocation. Electronically signed by: Etta Miller MD 08/20/2025 12:34 PM [facility]
--- OUTSIDE RECORDS SUMMARY | 2025-08-20 10:40 | XMS_ITS | Encounter Summary ---
Author Organization [employer] Address [address] [facility] 7t [place] [address] Care Team Providers Care Account Development Manager Name Role Phone Gil Breen MD Primary Care Prov ider Reason for Visit * Reason Comments Back Pain Encounter Details Date Type Department Care Team (Late st Contact Info) Description 08/20/2025 10:40 AM EST Office Visit [facility] [address] [place], [place] [phone] Aristides Hewitt MD [address] [place] [address] Left hip pain (Primary Dx) Social History Tobacco Use Types Packs/Day Years Used Date Smoking Tobacco: Never Passive Smoke Exposure: Never Smokeless Tobacco: Never Tobacco Cessation:Counseling Given: [...] your housing situation today? I have amber sing 02/17/[address] you li [...] Sign Reading Time Taken Comments Blood Pressure 129/82 08/20/2025 10:51 AM EST Pulse 84 08/20/2025 10:51 AM EST Temperature 36.6 C (97.8 F) 08/20/2025 10:51 AM EST Respiratory Rate 16 08/20/2025 10:51 AM EST Oxygen Saturation 98% 08/20/2025 10:51 AM EST Inhaled Oxygen Concentration - - Weight 64.9 kg (143 lb) 08/20/2025 10:51 AM EST Height - - Body Mass Index 27.02 02/17/2025 10:30 AM EDT documented in this encounter Progress Notes * Jay Contreras MA - 08/20/2025 10:40 AM EST Subjective History was provided by the patient. Radha Marina is a 75 y.o. female who presents for evaluation of ongoing left hip and left-sided low back pain for 6 months after a fall. Pain is aggravated by twisting movements and position change. Has full ROM. No difficulty with ambulation. Pain does not radiate. No focal weakness. No numbness or tingling of lower extremities. No bladder or bowel incontinence. Initially treated with Naproxen and Cyclobenzaprine without much improvement. She was again evaluated in 03/2025 by her PCP. Recommended X-ray and Physical Therapy, but did not pursue. Objective Vitals: 08/20/25 1051 BP: 129/82 BP Location: Right arm Patient Position: Sitting BP Cuff Size: Adult Pulse: 84 Resp: 16 Temp: 97.8 ??F (36.6 ??C) TempSrc: Oral SpO2: 98% Weight: 143 lb (64.9 kg) Physical Exam Vitals reviewed. Constitutional: General: She is not in acute distress. Appearance: Normal appearance. She is not ill-appearing, toxic-appearing or diaphoretic. HENT: Head: Normocephalic and atraumatic. Right Ear: External ear normal. Left Ear: External ear normal. Nose: Nose normal. Mouth/Throat: Pharynx: Oropharynx is clear. Eyes: Extraocular Movements: Extraocular movements intact. Conjunctiva/sclera: Conjunctivae normal. Pulmonary: Effort: Pulmonary effort is normal. Abdominal: General: Abdomen is flat. There is no distension. Palpations: Abdomen is soft. Tenderness: There is no abdominal tenderness. There is no right CVA tenderness, left CVA tenderness, guarding or rebound. Musculoskeletal: General: Tenderness present. No swelling, deformity or signs of injury. Normal range of motion. Cervical back: Neck supple. Right lower leg: No edema. Left lower leg: No edema. Comments: Left hip joint tenderness without deformity; FROM with external rotation and flexion; negative SLR; motor 5/5 BLE; left lateral lumbar area with hypertrophy/hypertonicity of musculature; mild scoliosis (convexity to the right), but no lordosis Skin: General: Skin is warm and dry. Neurological: General: No focal deficit present. Mental Status: She is alert and oriented to person, place, and time. Motor: No weakness. Coordination: Coordination normal. Gait: Gait normal. Psychiatric: Mood and Affect: Mood normal. Behavior: Behavior normal. Radha was seen today for back pain. Diagnoses and all orders for this visit: Left hip pain (Primary) - Diclofenac Sodium 1 % gel; Apply 1 Application topically if needed in the morning, at noon, in the evening, and at bedtime (pain) for up to 7 days. Patient presents to [facility] with ongoing left hip and left lateral low back pain for 6 months Has FROM at the left hip without significant limitation Has a clinical evidence of muscular strain of paravertebral musculature Denies radiculopathy or impingement symptoms Reports no significant improvement with Cyclobenzaprine previously Rx Diclofenac topical Potential adverse effects of the medication reviewed Patient was escorted to radiology today to complete previously ordered X-ray Also given the phone number to contact [facility] to schedule an appointment Indications for UC/ER use reviewed Advised to contact the clinic if persistent or worsening symptoms documented in this encounter Plan of Treatment Not on file documented as of this encounter Visit Diagnoses Diagnosis Left hip pain- Primary Pain in joint, pelvic region and thigh documented in this encounter Additional Health Concerns Assessment Noted Time PHQ-9 Depression Total Score: 3 02/18/20 25 10:31 AM EDT documented as of this encounter Care Teams Account Development Manager Relationship Specialty Start Date End Date Gil Breen MD [address] [place] [phone] PCP - General Internal Medicine 02/28/20 documented as of this encounter
--- OUTSIDE RECORDS SUMMARY | 2025-08-20 12:11 | XMS_ITS | Encounter Summary ---
Author Organization [employer] Address [address] [facility] 7t [place] [address] Care Team Providers Care Entry Rep Name Role Phone Gil Breen MD Primary Care Prov ider Encounter Details Date Type Department Care Team (Latest Contact Info) Description 08/20/2025 Travel Social History Tobacco Use Types Packs/Day Years Used Date Smoking Tobacco: Never Passive Smoke Exposure: Never Smokeless Tobacco: Never Alcohol Use Standard [...] documented as of this encounter Care Teams Entry Rep Relationship Specialty Start Date End Date Gil Breen MD [address] [place] [address] PCP - General Internal Medicine 02/28/20 documented as of this encounter
--- OUTSIDE RECORDS SUMMARY | 2025-08-20 12:11 | XMS_ITS | Encounter Summary ---
Author Organization [employer] Address [address] [place] [address] 7[address] [place] [address] Care Team Providers Care Coding Analyst Name Role Phone Gil Breen MD Primary Care Prov ider Reason for Visit * Reason Comments Med Refill Encounter Details Date Type Department Care Team ([facility] st Contact Info) Description 07/17/2023 Refill [facility] [address] [facility] [place] [address] Gil Breen MD [address] [place] [address] Social History Tobacco Use Types Packs/Day Years [...] on filedocumented in this encounter Care Teams Coding Analyst Relationship Specialty Start Date End Date Gil Breen MD [address] [place] [address] PCP - General Internal Medicine 02/28/20 documented as of this encounter
--- OUTSIDE RECORDS SUMMARY | 2025-08-20 12:11 | XMS_ITS | Encounter Summary ---
Author Organization [employer] Address [address] [facility] [address] 7[address] [place] [address] Care Team Providers Care Cant Gang Sawyer Name Role Phone Gil Breen MD Primary Care Prov ider Encounter Details Date Type Department Care Team (Late st Contact Info) Description 01/10/2024 Orders Only [facility] [address] [place], [place] [phone] ProviderLuz Marina MD Social History Tobacco Use [...] EST) Colonoscopy Normal Normal us Historical Provider [facility] [place] Edited Result - Final documented in this encounter Visit Diagnoses Not on filedocumented in this encounter Additional Health Concerns Assessment Noted Time PHQ-9 Depression Total Score: 8 08/09/20 23 9:53 AM EST documented as of this encounter Care Teams Cant Gang Sawyer Relationship Specialty Start Date End Date Gil Breen MD [address] [place] [phone] PCP - General Internal Medicine 02/28/20 documented as of this encounter
--- OUTSIDE RECORDS SUMMARY | 2025-08-20 12:12 | XMS_ITS | Clinical Summary ---
Author Organization [employer] Address [address] [place] [address] 7[address] [place] [address] Care Team Providers Care Women Designer Name Role Phone Gil Breen MD Primary Care Prov ider Allergies No known active allergies Medications risedronate (Actonel) 35 MG tablet Take 35 mg by mouth 1 (one) time per week. 3 Active cyclobenzaprine (Flexeril) 10 MG tablet Take 1 tablet (10 mg) by mouth 3 times daily for 10 days. 30 tablet 5 Active naproxen (Naprosyn) 500 MG tablet Take 1 tablet (500 mg) by mouth 2 times daily. 60 tablet 5 Active carboxymethylce llulose (Artificial Tears) 1 % ophthalmic solution Administer 1 drop into both eyes 3 times daily. 15 mL 1 5 04/05/20 26 Active atorvastatin (Lipitor) 40 MG tablet TAKE [...] BEFORE A MEAL 90 capsule 5 Active Diclofenac Sodium 1 % gelIndications: Left hip pain Apply 1 Application topically if needed in the morning, at noon, in the evening, and at bedtime (pain) for up to 7 days. 100 g 5 08/27/20 25 Active Active Problems Problem Noted Date Diagnosed Date Left flank pain 02/17/2025 Assessment & Plan (04/05/2025 1:09 PM EDT): Patient suffered a fall almost 3 months ago, mild improvement with home remedies, will refer to PT, call back if not improving after finishing therapies Assessment & Plan (02/17/2025 11:20 AM EDT): Patient fell over a month ago, no bruises on examination, will prescribe naproxen and cyclobenzaprine, call back if not improving in 2 weeks Encounter for screening mamm ogram for malignant neoplasm of breast 06/10/2024 Alzheimer disease 05/18/2024 Assessment & Plan (05/18/2024 9:57 AM EDT): Saw neurology, was diagnosed with alzheimer dementia, missed follow up appointment, told sandblast or shotblast equipment tender to call her insurance, patient needs a HOSE STRIPPER for daily activities such as taking her [...] pocket pill, provided with a list for HOSE STRIPPER services, follow up in 1 month Assessment [...] for colon cancer 10/13/2023 Assessment & Plan (04/05/2025 1:09 PM EDT): Patient refuses study, risk were discussed Assessment & Plan (02/17/2025 11:17 AM EDT): Will send cologuard, patient refused colonoscopy risk vs benefits discussed Assessment & Plan (10/13/2023 1:59 PM EST): Will refer for screening colon cancer Encounters Date Type Department Care Team Description 08/20/2025 10:40 AM EST Office Visit [facility] [address] [place] [address] Aristides Hewitt MD Left hip pain (Primary Dx) 08/20/2025 Travel 06/16/2025 Telephone [facility] [address] [place] [address] Gil Breen MD 06/16/2025 Travel 06/15/2025 Telephone [facility] [address] [place] [address] Gil Breen MD chart prep 06/05/2025 Refill [facility] [address] [place] [address] Gil Breen MD from Last 3 Months Immunizations Immunization Administration [...] (143 lb) 08/20/2025 10:51 AM EST Height 154.9 cm (5' 1 ) 02/17/2025 10:30 AM EDT Body Mass Index 27.02 02/17/2025 10:30 AM EDT Plan of Treatment Health Maintenance Due Date Last Done Comments CT Colonography 1950 FIT DNA/Cologuard 1950 FIT 1950 FOBT 1950 Sigmoidoscopy 1950 Zoster Vaccines (1 of 2) 2002 Colonoscopy 09/15/2020 09/15/2017 Colorectal Cancer Screening 09/15/2020 COVID-19 Vaccine ( season) 2025 10/20/2022, 08/10/2021, 01/11/2021, Additional history exists Influenza Vaccine (#1) 2025 , 08/09/2023, 06/12/2022, Additional history exists Alcohol/Substance Use Screening 02/17/2026 02/17/2025 Depression Screening 02/17/2026 02/17/2025, 02/18/20 25 SDOH Screening 02/17/2026 02/17/2025 Mammogram 06/26/2026 06/26/2024, 01/28, 08/29/2021, Additional history exists Tobacco Screening 08/20/2026 08/20/2025 RSV Patients and Patients Aged 60 years or older (1 - 1-dose 75+ series) 2027 DTaP/Tdap/Td Vaccines (3 - Td or Tdap) 07/01/2028 07/01/2018, 11/28/2012 Lipid Panel 02/17/2030 02/17/2025, 07/31, 06/14/2022, Additional history exists Pneumococcal Vaccine: 50+ Years Completed 07/01/2018, 08/08/2017 Hepatitis C Screening Completed 08/09/2023 HIB Vaccines Aged Out No longer eligi [...] Procedure Name Priority Date/Time Associated Diagnosis Comments LIPID PANEL, STANDARD Routine 02/17/2025 11:13 AM EDT Primary hypertension BI MAMMOGRAM SCREENING TOMOSYNTHESIS BILATERAL Routine 06/26/2024 12:07 PM EDT Encounter for screening mammogram for malignant neoplasm of breast HEPATITIS C AB W/REFL TO HCV RNA, QN, PCR Routine 08/09/2023 11:10 AM EST Primary hypertension HM COLONOSCOPY Routine 09/15/2017 2:17 PM EST from Last 3 Months or Most Recently Relevant to Health Maintenance Results * (ABNORMAL) Lipid Panel, Standard (02/17/2025 11:13 AM EDT) Triglycerides 194(H) <150 mg/dL [facility] Comment:Desirable Triglyceri de: less than 150 mg/dLBorderline High Triglyceride 150-199 mg/dLHigh Triglyceride: 200-499 mg/dLVery High Triglyceride: greater than or equal to 5OO mg/dL Cholesterol 217(H) <200 mg/dL [facility] Comment:Desirable Cholestero l: less than 200 mg/dLBorderline High Cholesterol: 200-239 mg/dLHigh Cholesterol: greater than 239 mg/dL LDL Cholesterol Calculated 117(H) <100 mg/dL [facility] Comment:Desirable LDL: less than 100 mg/dLNear Optimal/Above Optimal LDL: 110- 129 mg/dLBorderline High LDL: 130-159 mg/dLHigh LDL: 160-189 mg/dLVery High LDL: greater than or equal to 190 mg/dL HDL Cholesterol 62 >40 mg/dL [facility] Comment:Desirable HDL: great er than 40 mg/dL Note: This HDL assay may give artificially low results in patients with liver disease. Blood Venous blood specimen / Unknown 02/17/2025 11:13 AM EDT 02/17/2025 2:08 PM EDT Gil Menendez MD LAB BLOOD ORDERABL ES Final Result [facility] [address] [place] [phone] * BI Mammogram Screening Tomosynthesis Bilateral (06/26/2024 12:07 PM EDT) Anatomical Region Laterality Modality Breast Bilateral Mammography 06/26/2024 12:0 7 PM EDT Narrative 07/08/2024 3:20 PM EDT [facility] [address] [place] [address] Mammography Report Signed Patient: Radha Marina MR#: [id number] : 1950 Acct:[id number] Age/Sex: 74 / F ADM Date: 06/26/24 Loc: HO.MAMMO Attending Dr: Gil Menendez MD Ordering Physician: Gil Breen MD Res ults: 1Negative Date of Service: 06/26/24 Follow Up: 1 Year From Orig ina Mammogram Procedure(s): MM tomosynthesis screening BI Accession Number(s): [id number] cc: Gil Breen MD EXAMINATION: MM SCREENING [...] DO 07/08/2024 03:16 PM EDT Dictated By: Tyminski,Karina DO Signed By: <Electronically signed by Karina Schneider DO in OV> 07/08/24 1516 DD/ 1207 TD/TT: 06/26/24 1231 International Editorial Producer: Procedure Note Donotcristininterpreter, Image - [facility]/08/[facility] [address] [place], [place] [address] Mammography Report Signed Patient: Radha MarinaMR#: [id number] : 2Acct:[id number] Age/Sex: 74 / FADM Date: 06/26/24 Loc: HO.MAMMO Attending Dr: Gil Menendez MD Ordering Physician: Gil Breen ults: 1Negative Date of Service: 06/26/24Follow Up: 1 Year From Orig inal Mammogram Procedure(s): MM tomosynthesis screening BI Accession Number(s): [id number] cc: Gil Breen MD EXAMINATION: MM SCREENING [...] 07/08/24 1516 DD/ 1207 TD/TT: 06/26/24 1231 International Editorial Producer: Gil Menendez MD IMG BI PROCEDURES Final Result * Hepatitis C Antibody with Reflex to HCV, RNA, Quantitative, Real-Time PCR (08/09/2023 11:10 AM EST) Hepatitis C Antibody Nonreactive Nonreactive [facility] Comment:Antibodies to HCV no t detected; does not exclude early acuteHCV infection. Blood Venous blood specimen / Unknown 08/09/2023 11:10 AM EST 08/09/2023 2:13 PM EST Gil Menendez MD LAB BLOOD ORDERABL ES Final Result Performing Organization Address City/State/[facility] Co de Phone Number [facility] [address] [place] [phone] * Colonoscopy (09/15/2017 2:17 PM EST) Colonoscopy Normal Normal Historical Provider HEALTH MAINTENANCE Edited Result - Final from Last 3 Months or Most Recently Relevant to Health [place] [address] [facility] DUAL COMPLETE * Guarantor: Radha Marina Account Type Relation to Patient Date of Phone Billing Address Personal/[place] [address] Care Teams Women Designer Relationship Specialty Start Date End Date ZapataGil Aguila MD [address] [place] [address] [place] [address] PCP - General Internal Medicine 02/28/20
== END 2025-08-20 11:18 | disposition home or self-care (01) ==
LOC: HO.HHCX 11:17
PROVIDERS: Visit Provider Internal Medicine
DX: M25.552 Pain in left hip (principal); R10.A2 Flank pain, left side
CPT/HCPCS: 73502

== ENCOUNTER → 2025-08-20 11:57 | Outpatient (BNV) | payer OTHER, SELFPAY | PROVIDERS: Visit Provider Radiology Body Imaging | DX: M25.552 Pain in left hip (principal) | CPT/HCPCS: 73502 ==